=== PATIENT | male | born 1950 | race Caucasian/White ===

== ENCOUNTER 2017-11-19 09:58 | Day surgery (SDC) | payer MEDICARE, BC ==
[~2017-11-19] VITALS: Ht 175.3 cm; Wt 94.3 kg
[~2017-11-19 09:58] MED LIST: ALLEGRA ALLERGY60 MG PO; AMLODIPINE5 MG PO; ASPIRIN81 MG PO; ATORVASTATIN CA10 MG PO; CADUET10 MG/10 M OR; DOXYCYCL HYC100 MG PO; FLONASE AL50 MCG/ACT IN; LORTAB 5 OR; MICRO-K10 ME1 PO; MONTELUKAST SOD10 MG PO; NAPROSYN500 MG OR
[2017-11-19 13:35] VITALS: BP 143/93
== END 2017-11-19 13:44 | disposition home or self-care (01) ==
LOC: ENDO 09:58 → ORM 11:30 → ENDO 13:44
PROVIDERS: ATTEND Internal Medicine Gastroenterology
PROC: 0DB48ZX Excision of Esophagogastric Junction, Via Natural or Artificial Opening Endoscopic, Diagnostic (ICD-10-PCS; principal; 2017-11-19)
PROC: 0DB18ZX Excision of Upper Esophagus, Via Natural or Artificial Opening Endoscopic, Diagnostic (ICD-10-PCS; 2017-11-19)
DX: K21.0 Gastro-esophageal reflux disease with esophagitis (principal); K57.90 Diverticulosis of intestine, part unspecified, without perforation or abscess without bleeding; K59.8 Other specified functional intestinal disorders; K25.9 Gastric ulcer, unspecified as acute or chronic, without hemorrhage or perforation; K44.9 Diaphragmatic hernia without obstruction or gangrene; K29.80 Duodenitis without bleeding; K29.50 Unspecified chronic gastritis without bleeding; K64.8 Other hemorrhoids; I10 Essential (primary) hypertension; E78.00 Pure hypercholesterolemia, unspecified; Z86.010 Personal history of colon polyps; Z80.0 Family history of malignant neoplasm of digestive organs